=== PATIENT | male | born 1965 | race Hispanic/Latino ===

== ENCOUNTER 2019-03-02 05:54 | Emergency (ER) | payer MEDICARE ==
[~2019-03-02 05:54] MED LIST: ASPI-555 PO; CARV25TA PO; CLOP75TA14 PO; FURO80TA3 PO; HYDR-4068 PO; HYDR-4153 PO; RANO10004 PO; VIT1TABL95 PO
[2019-03-02] MEDS ORDERED: LIDOCAINE 1%-EPI 1:100,000 20 ML VIAL IJ ONE (08:49)
== END 2019-03-02 12:29 | disposition home or self-care (01) ==
LOC: EDH 05:54
DX: T82.838A Hemorrhage due to vascular prosthetic devices, implants and grafts, initial encounter (principal); E11.22 Type 2 diabetes mellitus with diabetic chronic kidney disease; N18.6 End stage renal disease; I50.9 Heart failure, unspecified; Z88.0 Allergy status to penicillin; Z88.6 Allergy status to analgesic agent; Z99.2 Dependence on renal dialysis
CPT/HCPCS: 82948; 99284; J3490

== ENCOUNTER 2019-08-14 21:09 | Emergency (ER) | payer MEDICARE ==
[~2019-08-14 21:09] MED LIST changes: -ASPI-555 PO; +ASPI-556 PO; -RANO10004 PO; +RANO10005 PO
[2019-08-14 21:38] LABS: BASOPHILS % (AUTO) 0.5 % (0.0-5.0); EOSINOPHILS % (AUTO) 1.9 % (0.0-8.0); HEMATOCRIT 35.5 % (42-54); LYMPHOCYTES % (AUTO) 17.5 % (21.0-51.0); MEAN CORPUSCULAR HEMOGLOBIN 32.1 pg (27.0-33.0); MEAN CORPUSCULAR HGB CONC 33.2 g/dL (32.0-36.0); MEAN CORPUSCULAR VOLUME 96.5 fL (79-99); MONOCYTES % (AUTO) 9.2 % (3.0-13.0); NEUTROPHILS % (AUTO) 70.3 % (40.0-77.0); PLATELET COUNT (AUTO) 219 K/uL (130-400); RED BLOOD CELL COUNT(AUTO) 3.68 MIL/uL (4.50-6.20); RED CELL DISTRIBUTION WIDTH 13.1 % (11.0-15.5); WHITE BLOOD COUNT (AUTO) 8.6 K/uL (4.8-10.8)
[2019-08-14 21:50] LABS: CREATININE 3.5 mg/dL (0.5-1.5); POTASSIUM 3.2 mmol/L (3.5-5.1)
[2019-08-14 21:52] LABS: INR 0.97 (0.85-1.15); PARTIAL THROMBOPLASTIN TIME 30.6 SEC (26.3-35.5); PROTHROMBIN TIME 10.5 SEC (9.6-11.6)
[2019-08-14 21:55] LABS: ALBUMIN 3.6 g/dL (3.5-5.0); BILIRUBIN,TOTAL 0.4 mg/dL (0.2-1.0); TOTAL PROTEIN, SERUM 7.4 g/dL (6.0-8.3)
[2019-08-14] MEDS ORDERED: LABETALOL 20 MG/4 ML DISP.SYRIN IV ONE (22:16)
[2019-08-14] MEDS ORDERED: HYDRALAZINE HCL 20 MG/ML VIAL ONE (23:44)
[2019-08-15] MEDS ORDERED: LORAZEPAM 2 MG/ML 1 ML VIAL ONE (00:05)
[2019-08-19] MEDS ORDERED: HYDR-4154 PO (16:57)
[2019-08-19] MEDS ORDERED: INSU3INS5 SQ (16:57)
[2019-08-19] MEDS ORDERED: INSU10VI3 SQ (16:57)
[2019-08-19] MEDS ORDERED: ATOR40TA69 PO (16:57)
[2019-11-11] MEDS ORDERED: SACU1TAB7 PO (16:20)
[2019-11-11] MEDS ORDERED: EZET10TA48 PO (16:20)
[2019-11-11] MEDS ORDERED: RANO10003 PO (16:20)
[2019-11-11] MEDS ORDERED: ATOR-2 PO (16:20)
[2019-11-11] MEDS ORDERED: AEC81 PO (16:20)
== END 2019-08-15 01:44 | disposition home or self-care (01) ==
LOC: EDH 21:09
DX: F41.1 Generalized anxiety disorder (principal); I13.2 Hypertensive heart and chronic kidney disease with heart failure and with stage 5 chronic kidney disease, or end stage renal disease; E11.22 Type 2 diabetes mellitus with diabetic chronic kidney disease; N18.6 End stage renal disease; I50.9 Heart failure, unspecified; Z88.0 Allergy status to penicillin; Z88.6 Allergy status to analgesic agent; Z88.8 Allergy status to other drugs, medicaments and biological substances
CPT/HCPCS: 36415; 71045; 80053; 83880; 84484 ×2; 85025; 85610; 85730; 93005; 96374; 96375 ×2; 99285; J0360; J2060; 96365; 96366

== ENCOUNTER 2019-08-20 18:07 | Inpatient (IN) | payer MEDICARE ==
[~2019-08-20] VITALS: Ht 162.6 cm; Wt 74.6 kg
[~2019-08-20 18:07] MED LIST changes: -ASPI-556 PO; +ATOR40TA69 PO; -FURO80TA3 PO; -HYDR-4153 PO; +HYDR-4154 PO; +INSU10VI3 SQ; +INSU3INS5 SQ
[2019-08-20] MEDS ORDERED: ASPIRIN 81MG TAB.CHEW ONE (18:18)
[2019-08-20 18:36] LABS: BASOPHILS % (AUTO) 0.3 % (0.0-5.0); EOSINOPHILS % (AUTO) 1.3 % (0.0-8.0); HEMATOCRIT 34.8 % (42-54); LYMPHOCYTES % (AUTO) 11.9 % (21.0-51.0); MEAN CORPUSCULAR HEMOGLOBIN 32.8 pg (27.0-33.0); MEAN CORPUSCULAR HGB CONC 33.3 g/dL (32.0-36.0); MEAN CORPUSCULAR VOLUME 98.3 fL (79-99); MONOCYTES % (AUTO) 8.3 % (3.0-13.0); NEUTROPHILS % (AUTO) 77.7 % (40.0-77.0); PLATELET COUNT (AUTO) 204 K/uL (130-400); RED BLOOD CELL COUNT(AUTO) 3.54 MIL/uL (4.50-6.20); RED CELL DISTRIBUTION WIDTH 13.1 % (11.0-15.5); WHITE BLOOD COUNT (AUTO) 9.7 K/uL (4.8-10.8)
[2019-08-20 19:06] LABS: INR 0.96 (0.85-1.15); PARTIAL THROMBOPLASTIN TIME 29.4 SEC (26.3-35.5); PROTHROMBIN TIME 10.4 SEC (9.6-11.6)
[2019-08-20 19:22] LABS: ALBUMIN 3.4 g/dL (3.5-5.0); BILIRUBIN,TOTAL 0.3 mg/dL (0.2-1.0); CREATININE 5.9 mg/dL (0.5-1.5); POTASSIUM 4.1 mmol/L (3.5-5.1)
[2019-08-20] MEDS ORDERED: INSULIN HUMULIN R 100 UNIT/ML 3ML ONE (19:48)
[2019-08-20] MEDS ORDERED: HYDROCODONE/ACETAMINOPHEN 10/325 MG TAB ONE (20:01)
[2019-08-20] MEDS ORDERED: ONDANSETRON HCL 4 MG/2 ML VIAL IVP PRN (22:00)
[2019-08-20] MEDS ORDERED: ACETAMINOPHEN 325 MG TAB PO PRN (22:00)
[2019-08-21] MEDS ORDERED: MORPHINE SULFATE 2 MG/ML 1ML SYG ONE ×3 (00:25→17:36)
[2019-08-21 04:01] LABS: BASOPHILS % (AUTO) 0.4 % (0.0-5.0); EOSINOPHILS % (AUTO) 2.6 % (0.0-8.0); HEMATOCRIT 32.1 % (42-54); LYMPHOCYTES % (AUTO) 15.5 % (21.0-51.0); MEAN CORPUSCULAR HEMOGLOBIN 31.8 pg (27.0-33.0); MEAN CORPUSCULAR HGB CONC 32.7 g/dL (32.0-36.0); MEAN CORPUSCULAR VOLUME 97.3 fL (79-99); MONOCYTES % (AUTO) 8.5 % (3.0-13.0); NEUTROPHILS % (AUTO) 72.6 % (40.0-77.0); PLATELET COUNT (AUTO) 192 K/uL (130-400); RED CELL DISTRIBUTION WIDTH 13.3 % (11.0-15.5); WHITE BLOOD COUNT (AUTO) 10.6 K/uL (4.8-10.8)
[2019-08-21 04:24] LABS: HEMOGLOBIN A1C 6.5 % (4.0-6.0)
[2019-08-21 04:38] LABS: ALBUMIN 3.1 g/dL (3.5-5.0); BILIRUBIN,TOTAL 0.3 mg/dL (0.2-1.0); CREATININE 6.1 mg/dL (0.5-1.5); MAGNESIUM 3.5 mg/dL (1.80-2.40); POTASSIUM 4.1 mmol/L (3.5-5.1); TOTAL PROTEIN, SERUM 6.4 g/dL (6.0-8.3)
[2019-08-21 04:42] LABS: TROPONIN I 11.33 ng/mL (0.00-0.06)
[2019-08-21] MEDS ORDERED: ONDANSETRON HCL 4 MG/2 ML VIAL ONE (07:40)
[2019-08-21] MEDS: ASPIRIN 81MG TAB.CHEW PO SCH (09:00)
[2019-08-21] MEDS: METOPROLOL TARTRATE 25 MG TAB PO SCH ×2 (09:00→20:55)
[2019-08-21] MEDS: ENOXAPARIN SODIUM 40 MG/0.4 ML SYRINGE SQ SCH (09:00)
[2019-08-21] MEDS ORDERED: HEPARIN SODIUM 5000UNIT/ML 1ML VIAL ONE (16:29)
--- NOTE | 2019-08-21 16:30 | NUR ---
ER ARRIVAL PATIENT ARRIVED FROM ER. NO SIGNS OF DISTRESS NOTED. PATIENT IS AAOX4. DENIES HAVING CHEST PAIN AT THIS TIME.
[2019-08-21 16:35] VITALS: BP 153/86
[2019-08-21 19:53] VITALS: BP 135/80
[2019-08-21] MEDS: INSULIN HUMULIN R 100 UNIT/ML 3ML SQ SCH (21:58)
[2019-08-21 23:54] VITALS: BP 152/83
[2019-08-22 04:02] VITALS: BP 120/60
[2019-08-22] MEDS: MORPHINE SULFATE 2 MG/ML 1ML SYG IVP PRN ×2 (04:05→20:20)
[2019-08-22] MEDS: INSULIN HUMULIN R 100 UNIT/ML 3ML SQ SCH ×4 (05:42→20:30)
[2019-08-22 07:00] VITALS: BP 142/73
[2019-08-22] MEDS: ASPIRIN 81MG TAB.CHEW PO SCH (08:38)
[2019-08-22] MEDS: METOPROLOL TARTRATE 25 MG TAB PO SCH ×2 (08:38→20:19)
[2019-08-22] MEDS: ENOXAPARIN SODIUM 40 MG/0.4 ML SYRINGE SQ SCH (08:39)
[2019-08-22] MEDS: HYDROCODONE/ACETAMINOPHEN 10/325 MG TAB PO PRN ×3 (08:52→22:20)
--- NOTE | 2019-08-22 11:14 | NUR ---
D/C PLAN CM spoke to pt regarding d/c planning. Pt lives with spouse. States spouse and provider assists in care as needed. Pt has abelardo, louisa torres, and w/c. Plan to home. Pt asked for assistance with making bathroom handicap equipped. CM offered to refer pt to DAD's program. Agreed. CM to leave referral for Nathalia with DAD's. No other questions or concerns verbalized. CM to f/u. Addendum: 08/22/19 at 1207 by AMANDA MANUEL CM Amended: Links added.
[2019-08-22 11:30] VITALS: BP 136/74
[2019-08-22 15:30] VITALS: BP 178/87
[2019-08-22] MEDS: LACTULOSE 20 GM/30 ML UDCUP PO PRN (15:36)
[2019-08-22 19:30] VITALS: BP 144/89
--- NOTE | 2019-08-22 22:00 | NUR ---
SHOWER Pt showered and clipped per staff.Instructed to keep Npo after midnight for heart cath in am,verbalized understanding.
[2019-08-23] VITALS (21 sets, daily range): BP systolic 108–159; BP diastolic 59–87
[2019-08-23 05:24] LABS: HEMATOCRIT 29.1 % (42-54); MEAN CORPUSCULAR HEMOGLOBIN 32.5 pg (27.0-33.0); MEAN CORPUSCULAR HGB CONC 33.7 g/dL (32.0-36.0); MEAN CORPUSCULAR VOLUME 96.4 fL (79-99); RED BLOOD CELL COUNT(AUTO) 3.02 MIL/uL (4.50-6.20); RED CELL DISTRIBUTION WIDTH 12.7 % (11.0-15.5); WHITE BLOOD COUNT (AUTO) 6.4 K/uL (4.8-10.8)
[2019-08-23 05:49] LABS: ALBUMIN 2.8 g/dL (3.5-5.0); BILIRUBIN,TOTAL 0.3 mg/dL (0.2-1.0); CREATININE 6.5 mg/dL (0.5-1.5); MAGNESIUM 2.5 mg/dL (1.80-2.40); POTASSIUM 3.4 mmol/L (3.5-5.1)
[2019-08-23] MEDS: INSULIN HUMULIN R 100 UNIT/ML 3ML SQ SCH ×4 (06:10→21:00)
[2019-08-23] MEDS: MORPHINE SULFATE 2 MG/ML 1ML SYG IVP PRN ×4 (06:13→23:28)
[2019-08-23] MEDS: HYDROCODONE/ACETAMINOPHEN 10/325 MG TAB PO PRN ×3 (08:13→22:38)
[2019-08-23] MEDS: METOPROLOL TARTRATE 25 MG TAB PO SCH ×2 (08:13→21:11)
[2019-08-23] MEDS: ENOXAPARIN SODIUM 40 MG/0.4 ML SYRINGE SQ SCH (09:00)
[2019-08-23] MEDS: ASPIRIN 81MG TAB.CHEW PO SCH (10:55)
[2019-08-23] MEDS ORDERED: FENTANYL CITRATE PF 50 MCG/1 ML 2ML VIAL ONE (11:30)
[2019-08-23] MEDS ORDERED: SODIUM BICARB 50MEQ 50ML VIAL ONE (11:30)
[2019-08-23] MEDS ORDERED: NITROGLYCERIN 2 MG/VIAL VIAL IV ONE (11:30)
[2019-08-23] MEDS ORDERED: MIDAZOLAM HCL 1 MG/ML 2ML VIAL ONE (11:30)
[2019-08-23] MEDS ORDERED: LIDOCAINE HCL 2% 20ML ONE (11:30)
[2019-08-23] MEDS ORDERED: IOHEXOL-350 50ML VIAL IV ONE (11:30)
[2019-08-23] MEDS ORDERED: IOHEXOL 350 MG/ML 100ML INFUS..BTL IV ONE ×2 (11:30→13:19)
--- NOTE | 2019-08-23 11:40 | NUR ---
[employer] COMMISSIONER PATIENT IN [id number] CONDITION, ON ROOM AIR, ALERT AND ORIENTED, NO COMPLAINTS OF CHEST PAIN. [employer] COMMISSIONER TEAM ARRIVED TO ROOM TO TRANSPORT PATIENT TO [employer] COMM[employer]IONER AT THIS TIME.
[2019-08-23] MEDS ORDERED: HEPARIN SODIUM 1000UNIT/ML 10ML VIAL ONE (12:28)
[2019-08-23] MEDS ORDERED: IOHEXOL-350 75 ML VIAL IV ONE (12:48)
[2019-08-23] MEDS ORDERED: NITROGLYCERIN 50 MG/D5% WATER 1 BOT ONE (13:03)
--- NOTE | 2019-08-23 14:20 | NUR ---
REPORT REPORT GIVEN TO DEENA LOPEZ. PATIENT WILL BE TRANSFERRED TO ICU. PATIENT'S MADE AWARE.
[2019-08-23] MEDS ORDERED: NITROGLYCERIN 50 MG/D5% WATER 250 BOT IV SCH (15:00)
[2019-08-24] VITALS (22 sets, daily range): BP systolic 126–157; BP diastolic 65–84
[2019-08-24] MEDS: HYDROCODONE/ACETAMINOPHEN 10/325 MG TAB PO PRN ×3 (05:00→18:47)
[2019-08-24] MEDS: INSULIN HUMULIN R 100 UNIT/ML 3ML SQ SCH ×4 (07:30→20:44)
[2019-08-24] MEDS: ASPIRIN 81MG TAB.CHEW PO SCH (08:12)
[2019-08-24] MEDS: METOPROLOL TARTRATE 25 MG TAB PO SCH (08:12)
[2019-08-24] MEDS: ENOXAPARIN SODIUM 40 MG/0.4 ML SYRINGE SQ SCH (08:29)
[2019-08-24] MEDS ORDERED: NITR0.4T50 SL (16:59)
[2019-08-24] MEDS ORDERED: HEPARIN SODIUM 5000UNIT/ML 1ML VIAL ONE (18:22)
--- NOTE | 2019-08-24 22:23 | NUR ---
TRANSFER Received pt from [facility] via wheelchair,accompanied per Stewart Roberson.Pt aao x 3,denies pain or discomfort.Rt groin soft,no hematoma,dressing dry and intact,pedal pulses palpable.Rt.permacath drsng dry and intact.Reoriented to room,bed,call light.
--- NOTE | 2019-08-24 23:43 | NUR ---
ASLEEP Pt appears to be asleep,respirations even and unlabored.
[2019-08-25 03:54] VITALS: BP 142/73
--- NOTE | 2019-08-25 05:31 | NUR ---
SLEPT Pt slept well.no signs of distress or pain noted.
[2019-08-25] MEDS: INSULIN HUMULIN R 100 UNIT/ML 3ML SQ SCH ×4 (06:08→21:24)
[2019-08-25 08:59] VITALS: BP 149/81
[2019-08-25] MEDS: ASPIRIN 81MG TAB.CHEW PO SCH (09:11)
[2019-08-25] MEDS: ENOXAPARIN SODIUM 40 MG/0.4 ML SYRINGE SQ SCH (09:12)
[2019-08-25] MEDS: LACTULOSE 20 GM/30 ML UDCUP PO PRN (09:12)
[2019-08-25] MEDS: HYDROCODONE/ACETAMINOPHEN 10/325 MG TAB PO PRN ×3 (09:16→18:34)
[2019-08-25 12:46] VITALS: BP 153/79
--- NOTE | 2019-08-25 13:00 | NUR ---
PT WAS INITIALLY D/C BY DR WIGGINS BUT THEN PT TOLD HIM THAT HE WAS OUT OF [employer] SCRIPT FOR AT HOME AND HIS DR MCF[address]ANE OFFICE IS CLOSED FOR A WEEK; DR Ordaz SAID HE DID NOT HAVE TRIPLICATE WITH HIM AND HE WOULD BRING IT TOMORROW AND D/C PT THEN TOMORROW INSTEAD OF TODAY.
[2019-08-25 16:00] VITALS: BP 147/79
[2019-08-25 20:50] VITALS: BP 149/78
[2019-08-26 00:36] VITALS: BP 146/77
[2019-08-26] MEDS: HYDROCODONE/ACETAMINOPHEN 10/325 MG TAB PO PRN ×2 (02:15→11:05)
[2019-08-26 04:00] VITALS: BP 159/87
[2019-08-26] MEDS: INSULIN HUMULIN R 100 UNIT/ML 3ML SQ SCH ×2 (06:09→11:30)
[2019-08-26] MEDS ORDERED: ACETAMINOPHEN 325 MG TAB PO PRN (07:45)
[2019-08-26] MEDS ORDERED: 0.9% SODIUM CHLORIDE 1000 ML IV BAG IV PRN (07:45)
[2019-08-26] MEDS ORDERED: SODIUM CHLORIDE 0.9% 1000ML 1,000 ML IV PRN (07:45)
[2019-08-26] MEDS ORDERED: HEPARIN SODIUM 5000UNIT/ML 1ML VIAL IJ PRN ×2 (07:45)
[2019-08-26] MEDS ORDERED: NITROGLYCERIN 0.4 MG SL TAB SL PRN (07:45)
[2019-08-26 08:30] VITALS: BP 163/84
[2019-08-26] MEDS: ENOXAPARIN SODIUM 40 MG/0.4 ML SYRINGE SQ SCH (09:00)
[2019-08-26] MEDS: ASPIRIN 81MG TAB.CHEW PO SCH (11:04)
--- NOTE | 2019-08-26 11:35 | NUR ---
DIALYSIS PATIENT RECEIVED DIALYSIS TODAY FORM 0755 TO 1055 HOURS. REMOVED WAS 2.7L OF FLUID, PATIENT TOLERATED PROCEDURE WITHOUT INCIDENT. VITAL SIGNS WITHIN NORMAL LIMITS.
[2019-08-26 12:04] VITALS: BP 122/72
--- NOTE | 2019-08-26 14:14 | NUR ---
PATIENT DISCHARGE PATIENT DISCHARGED, IV DISCONTINUED, CATHLON INTACT, BLEEDING CONTROLLED, PATIENT TOLERATED WITHOUT INCIDENT.
== END 2019-08-26 14:08 | disposition home or self-care (01) | DRG 280 ==
LOC: EDH 18:07 → EDHIP 21:23 → 4BH 08-21 16:57 → OBSVTOIN 08-21 19:57 → 2CH 08-23 14:25 → 4DH 08-24 21:57
PROVIDERS: ADMIT Internal Medicine Infectious Disease; ATTEND Internal Medicine Infectious Disease
PROC: 5A1D70Z Performance of Urinary Filtration, Intermittent, Less than 6 Hours Per Day (ICD-10-PCS; 2019-08-21)
PROC: 4A023N8 Measurement of Cardiac Sampling and Pressure, Bilateral, Percutaneous Approach (ICD-10-PCS; principal; 2019-08-23)
PROC: B2121ZZ Fluoroscopy of Single Coronary Artery Bypass Graft using Low Osmolar Contrast (ICD-10-PCS; 2019-08-23)
PROC: B2181ZZ Fluoroscopy of Left Internal Mammary Bypass Graft using Low Osmolar Contrast (ICD-10-PCS; 2019-08-23)
PROC: B2111ZZ Fluoroscopy of Multiple Coronary Arteries using Low Osmolar Contrast (ICD-10-PCS; 2019-08-23)
PROC: 5A1D70Z Performance of Urinary Filtration, Intermittent, Less than 6 Hours Per Day (ICD-10-PCS; 2019-08-24)
PROC: 5A1D70Z Performance of Urinary Filtration, Intermittent, Less than 6 Hours Per Day (ICD-10-PCS; 2019-08-26)
DX: T82.218A Other mechanical complication of coronary artery bypass graft, initial encounter (principal); I21.4 Non-ST elevation (NSTEMI) myocardial infarction; N18.6 End stage renal disease; E44.1 Mild protein-calorie malnutrition; I13.2 Hypertensive heart and chronic kidney disease with heart failure and with stage 5 chronic kidney disease, or end stage renal disease; I50.42 Chronic combined systolic (congestive) and diastolic (congestive) heart failure; E66.9 Obesity, unspecified; E11.22 Type 2 diabetes mellitus with diabetic chronic kidney disease; Z95.1 Presence of aortocoronary bypass graft; I25.10 Atherosclerotic heart disease of native coronary artery without angina pectoris; Z99.2 Dependence on renal dialysis; I25.5 Ischemic cardiomyopathy; I35.0 Nonrheumatic aortic (valve) stenosis; Z68.28 Body mass index [BMI] 28.0-28.9, adult; D63.1 Anemia in chronic kidney disease; E78.5 Hyperlipidemia, unspecified; G89.29 Other chronic pain; I25.2 Old myocardial infarction; I27.20 Pulmonary hypertension, unspecified; Z79.02 Long term (current) use of antithrombotics/antiplatelets; Z79.899 Other long term (current) drug therapy; Z82.49 Family history of ischemic heart disease and other diseases of the circulatory system; Z83.3 Family history of diabetes mellitus; Z88.0 Allergy status to penicillin; Z88.8 Allergy status to other drugs, medicaments and biological substances; Y83.2 Surgical operation with anastomosis, bypass or graft as the cause of abnormal reaction of the patient, or of later complication, without mention of misadventure at the time of the procedure; Y92.89 Other specified places as the place of occurrence of the external cause
CPT/HCPCS: 36415; 71045; 76942; 80048; 80053; 80061; 82550; 82948; 83036; 83735; 83874; 83880; 84484; 85025; 85027; 85347; 85610; 85730; 90935; 93005; 93306; 93356; 93461; 99156; 99157; 99291; C1760; C1769; C1894; G0378; J1644; J1650; J1815; J2250; J2405; J3010; J3490; Q9967; U0003

== ENCOUNTER 2019-11-12 06:08 | Inpatient (IN) | payer MEDICARE ==
[2019-11-05 11:34] LABS: BASOPHILS % (AUTO) 0.6 % (0.0-5.0); EOSINOPHILS % (AUTO) 18.5 % (0.0-8.0); HEMATOCRIT 36.6 % (42-54); LYMPHOCYTES % (AUTO) 19.8 % (21.0-51.0); MEAN CORPUSCULAR HEMOGLOBIN 31.8 pg (27.0-33.0); MEAN CORPUSCULAR HGB CONC 32.2 g/dL (32.0-36.0); MEAN CORPUSCULAR VOLUME 98.7 fL (79-99); MONOCYTES % (AUTO) 5.9 % (3.0-13.0); NEUTROPHILS % (AUTO) 54.9 % (40.0-77.0); PLATELET COUNT (AUTO) 122 K/uL (130-400); RED BLOOD CELL COUNT(AUTO) 3.71 MIL/uL (4.50-6.20); RED CELL DISTRIBUTION WIDTH 13.3 % (11.0-15.5); WHITE BLOOD COUNT (AUTO) 9.3 K/uL (4.8-10.8)
[2019-11-05 11:46] LABS: CREATININE 7.1 mg/dL (0.5-1.5); POTASSIUM 4.2 mmol/L (3.5-5.1)
[2019-11-05 11:47] LABS: INR 0.99 (0.85-1.15); PARTIAL THROMBOPLASTIN TIME 29.6 SEC (26.3-35.5); PROTHROMBIN TIME 10.7 SEC (9.6-11.6)
--- NOTE | 2019-11-11 14:54 | NUR ---
LABS INFORMED DR. BARRETT GARCIA'S ASST IN REGARDS TO PLATELETS. SHE WILL INFORM HIM.
[2019-11-11 15:42] VITALS: BP 163/79
[2019-11-12] VITALS (24 sets, daily range): BP systolic 109–149; BP diastolic 62–82
[~2019-11-12] VITALS: Ht 162.6 cm; Wt 74.4 kg
[~2019-11-12 06:08] MED LIST changes: +AEC81 PO; +ATOR-2 PO; -ATOR40TA69 PO; +EZET10TA48 PO; -HYDR-4154 PO; -INSU10VI3 SQ; +PHARMACY COMMUNICATION MISC SCH; +RANO10003 PO; -RANO10005 PO; +SACU1TAB7 PO
[2019-11-12] MEDS ORDERED: LIDOCAINE PF 2% 5ML ABBOJECT ONE (07:25)
[2019-11-12] MEDS ORDERED: SUCCINYLCHOLINE CHLORIDE 20 MG/ML 10 ML VIAL ONE (07:25)
[2019-11-12] MEDS ORDERED: ONDANSETRON HCL 4 MG/2 ML VIAL ONE ×2 (07:26→22:56)
[2019-11-12] MEDS ORDERED: ROCURONIUM 10MG/1ML SYR 10 MG/ML ML ONE (07:26)
[2019-11-12] MEDS ORDERED: DEXAMETHASONE SOD PHOSPHATE 10MG/ML 1ML VIAL ONE (07:26)
[2019-11-12] MEDS ORDERED: MIDAZOLAM HCL 1 MG/ML 2ML VIAL ONE (07:26)
[2019-11-12] MEDS ORDERED: NEOSTIGMINE 5MG/5ML SYR IV ONE (07:26)
[2019-11-12] MEDS ORDERED: SODIUM CHLORIDE 0.9% 1000ML 1,000 ML IV ONE (07:26)
[2019-11-12] MEDS ORDERED: GLYCOPYRROLATE 1 MG/5 ML SYRINGE ONE (07:26)
[2019-11-12] MEDS ORDERED: PROPOFOL 10 MG/ML 20ML VIAL IV ONE (07:26)
[2019-11-12] MEDS ORDERED: FENTANYL CITRATE PF 50 MCG/1 ML 2ML VIAL ONE (07:27)
[2019-11-12] MEDS ORDERED: ALBUMIN (HUMAN) 25% 100 ML IV ONE (07:35)
[2019-11-12] MEDS: CLINDAMYCIN 900 MG/D5% WATER 50 ML IV PRN ×2 (07:35→07:45)
[2019-11-12] MEDS ORDERED: EPHEDRINE SULFATE 50 MG/ML AMPULE ONE (07:57)
[2019-11-12] MEDS ORDERED: ALBUMIN (HUMAN) 5% 500 ML IV ONE (08:07)
[2019-11-12] MEDS ORDERED: MEPERIDINE-PF 25 MG/ML SYG ONE (10:46)
[2019-11-12] MEDS ORDERED: SODIUM CHLORIDE 0.9% 1000ML 1,000 ML IV SCH (16:15)
[2019-11-12] MEDS ORDERED: MORPHINE SULFATE 4 MG/1ML SYG IV ONE (16:45)
[2019-11-12] MEDS: MORPHINE SULFATE 2 MG/ML 1ML SYG IVP PRN (20:06)
[2019-11-12] MEDS: OXYCODONE/ACETAMIN 5/325MG TAB PO PRN (21:32)
[2019-11-13 00:16] VITALS: BP 118/69
[2019-11-13] MEDS: MORPHINE SULFATE 2 MG/ML 1ML SYG IVP PRN ×6 (00:18→23:19)
[2019-11-13 04:02] VITALS: BP 126/76
[2019-11-13 06:09] LABS: BASOPHILS % (AUTO) 0.5 % (0.0-5.0); EOSINOPHILS % (AUTO) 4.2 % (0.0-8.0); LYMPHOCYTES % (AUTO) 12.5 % (21.0-51.0); MEAN CORPUSCULAR HEMOGLOBIN 32.8 pg (27.0-33.0); MEAN CORPUSCULAR VOLUME 99.3 fL (79-99); MONOCYTES % (AUTO) 6.8 % (3.0-13.0); NEUTROPHILS % (AUTO) 75.6 % (40.0-77.0); PLATELET COUNT (AUTO) 146 K/uL (130-400); RED BLOOD CELL COUNT(AUTO) 3.02 MIL/uL (4.50-6.20); RED CELL DISTRIBUTION WIDTH 13.2 % (11.0-15.5)
[2019-11-13 06:21] LABS: CREATININE 7.4 mg/dL (0.5-1.5); POTASSIUM 3.9 mmol/L (3.5-5.1)
[2019-11-13] MEDS: OXYCODONE/ACETAMIN 5/325MG TAB PO PRN (06:26)
[2019-11-13 08:00] VITALS: BP 146/78
[2019-11-13 12:00] VITALS: BP 133/76
[2019-11-13] MEDS ORDERED: ALBUTEROL INHALER 90MCG/INH IH PRN (12:00)
--- NOTE | 2019-11-13 13:02 | NUR ---
INITIAL SW spoke with patient. He lives with spouse, Beronica Santamaria. Patient has no home health but does have PHC X 29 hours. He does not remember the name of the agency. Dialysis: TTS 5am at [facility] in [place]. His helps with transportation to and from treatments. DME: BPM, electric wheelchair. Patient needs help with ADLs and rarely drives. PCP is Dr. Patel. Pharmacy is [facility] or [facility] in [place]. No safety concerns voiced about returning home. DCP is home. Addendum: 11/13/19 at 1305 by HUNTER CUELLAR SS Amended: Links added.
[2019-11-13] MEDS: RANOLAZINE 500 MG TAB.SR.12H PO SCH ×2 (13:38→21:00)
[2019-11-13 16:00] VITALS: BP 149/78
[2019-11-13 20:15] VITALS: BP 131/78
[2019-11-13] MEDS ORDERED: ATORVASTATIN CALCIUM 40 MG TABLET PO SCH (21:00)
[2019-11-13] MEDS ORDERED: EZETIMIBE 10 MG TAB PO SCH (21:00)
[2019-11-13] MEDS: SACUBITRIL PO SCH (21:00)
[2019-11-13] MEDS: VALSARTAN PO SCH (21:00)
[2019-11-13] MEDS ORDERED: CARVEDILOL 25 MG TABLET PO SCH (21:00)
[2019-11-13] MEDS ORDERED: HEPARIN SODIUM 5000UNIT/ML 1ML VIAL ONE (21:03)
[2019-11-14 00:02] VITALS: BP 104/73
[2019-11-14] MEDS: OXYCODONE/ACETAMIN 5/325MG TAB PO PRN ×2 (02:25→12:23)
[2019-11-14 04:04] VITALS: BP 83/50
--- NOTE | 2019-11-14 04:47 | NUR ---
Hypotensive Patient BP is low 88/57 was the highest and 83/54 is the lowest. The patient is asymptomatic. Dr. Avilez was paged at [phone] this morning. No calls have been returned for the MD as of right now. The patient is being closely monitored.
--- NOTE | 2019-11-14 04:53 | NUR ---
has been paged again [phone]
[2019-11-14 05:16] VITALS: BP 91/51
[2019-11-14 06:06] VITALS: BP 92/52
[2019-11-14] MEDS ORDERED: SODIUM CHLORIDE 0.9% 500ML 500 ML IV ONE (07:00)
[2019-11-14] MEDS: VALSARTAN PO SCH (07:17)
[2019-11-14] MEDS: SACUBITRIL PO SCH (07:17)
[2019-11-14] MEDS: RANOLAZINE 500 MG TAB.SR.12H PO SCH (08:54)
[2019-11-14] MEDS ORDERED: INSULIN HUMULIN 70/30 100 UNIT/ML 3ML SQ SCH (09:00)
[2019-11-14] MEDS ORDERED: ASPIRIN 81 MG EC TAB PO SCH (09:00)
[2019-11-14] MEDS ORDERED: VITAMIN B COMPLEX 1 CAPSULE PO SCH (09:00)
[2019-11-14] MEDS ORDERED: CLOPIDOGREL BISULFATE 75 MG TAB PO SCH (09:00)
[2019-11-14 09:46] VITALS: BP 100/59
[2019-11-14 10:31] VITALS: BP 103/60
--- NOTE | 2019-11-14 14:07 | NUR ---
DR HYDE CAME TO SEE PATIENT REMOVED GENNARO DRAIN AND APPLIED DRESSING .WILL DISCHARGE PATIENT .INFORMED MD ON BP BEING LOW IN MORNING HOURS AFTER DIALYSIS AND CURRENTLY BORDERLINE 90S TO 100 SYSTOLIC. MD EXPLAINED TO PATIENT MAY CONT HIS CAR[facility] STARTING TOMORROW BUT HOLD TODAY AND TO CHANGE HIS DRESSING ON IF NEEDED AND FOLLOW UP IN OFFICE. PATIENT VERBALIZED UNDERSTANDING
--- NOTE | 2019-11-14 14:12 | NUR ---
DISCHARGE INSTRUCTION PROVIDED TO PATIENT ALONG WITH INFO ON BLOOD PRESSURE CHECKS , CHECK INCISION ,CHANGE DRESSING AND TO CALL FOR COMPLICATIONS ,AND PROVIDED SCRIPT. FOLLOW UP WITH DR HYDE AND HIS DIALYSIS . PATIENT VERBILIZED UNDERSTANDING
[2019-11-17 07:18] LABS: HEPATITIS Bs ANTIGEN SCREEN P Negative (Negative)
== END 2019-11-14 15:50 | disposition home or self-care (01) | DRG 673 ==
LOC: DAH 06:08 → DAHIP 06:09 → 4AH 13:46
PROVIDERS: ADMIT Surgery Vascular Surgery; ATTEND Surgery Vascular Surgery
PROC: 5A1D70Z Performance of Urinary Filtration, Intermittent, Less than 6 Hours Per Day (ICD-10-PCS; 2019-11-12)
PROC: 03180ZD Bypass Left Brachial Artery to Upper Arm Vein, Open Approach (ICD-10-PCS; principal; 2019-11-12 07:30)
DX: I12.0 Hypertensive chronic kidney disease with stage 5 chronic kidney disease or end stage renal disease (principal); N18.6 End stage renal disease; Z20.828 Contact with and (suspected) exposure to other viral communicable diseases; D63.1 Anemia in chronic kidney disease; E11.22 Type 2 diabetes mellitus with diabetic chronic kidney disease; E78.5 Hyperlipidemia, unspecified; Y92.89 Other specified places as the place of occurrence of the external cause; Z99.2 Dependence on renal dialysis; Z95.1 Presence of aortocoronary bypass graft; Z95.5 Presence of coronary angioplasty implant and graft; Z88.0 Allergy status to penicillin; Z88.8 Allergy status to other drugs, medicaments and biological substances
CPT/HCPCS: 36415; 71045; 80048; 82948; 85025; 85610; 85730; 86704; 86706; 86850; 86900; 86901; 87340; 87520; 90935; 93005; G0378; J0330; J1100; J1644; J1815; J2001; J2175; J2250; J2270; J2405; J2704; J2710; J3010; J3490; J7030; P9045; P9047; U0003

== ENCOUNTER 2020-01-05 19:39 | Emergency (ER) | payer MEDICARE ==
[~2020-01-05 19:39] MED LIST changes: -PHARMACY COMMUNICATION MISC SCH
== END 2020-01-05 21:25 | disposition home or self-care (01) ==
LOC: EDH 19:39
DX: T82.838A Hemorrhage due to vascular prosthetic devices, implants and grafts, initial encounter (principal); I13.2 Hypertensive heart and chronic kidney disease with heart failure and with stage 5 chronic kidney disease, or end stage renal disease; E11.22 Type 2 diabetes mellitus with diabetic chronic kidney disease; N18.6 End stage renal disease; I50.9 Heart failure, unspecified; I25.10 Atherosclerotic heart disease of native coronary artery without angina pectoris; E78.00 Pure hypercholesterolemia, unspecified; Z95.1 Presence of aortocoronary bypass graft; Z88.0 Allergy status to penicillin; Z88.6 Allergy status to analgesic agent; Z99.2 Dependence on renal dialysis; Y84.1 Kidney dialysis as the cause of abnormal reaction of the patient, or of later complication, without mention of misadventure at the time of the procedure; Y92.89 Other specified places as the place of occurrence of the external cause

== ENCOUNTER → 2020-03-06 | Outpatient (CLI) | payer MEDICARE | END | disposition home or self-care (01) | LOC: SHCH 12:42 | PROVIDERS: ATTEND Internal Medicine Cardiovascular Disease | DX: I25.5 Ischemic cardiomyopathy (principal) | CPT/HCPCS: 93306; 93356 ==

== ENCOUNTER → 2020-04-28 | Outpatient (CLI) | payer MEDICARE | END | disposition home or self-care (01) | LOC: SHCH 10:00 | PROVIDERS: ATTEND Internal Medicine Cardiovascular Disease | DX: I50.22 Chronic systolic (congestive) heart failure (principal); I25.5 Ischemic cardiomyopathy | CPT/HCPCS: 78481; A9512 ==

== ENCOUNTER 2020-06-08 08:08 | Inpatient (IN) | payer MEDICARE ==
[~2020-06-08] VITALS: Ht 160 cm; Wt 63.5 kg
[2020-06-08 08:45] LABS: BASOPHILS % (AUTO) 0.8 % (0.0-5.0); EOSINOPHILS % (AUTO) 2.6 % (0.0-8.0); HEMATOCRIT 37.4 % (42-54); MEAN CORPUSCULAR HGB CONC 32.1 g/dL (32.0-36.0); MEAN CORPUSCULAR VOLUME 96.6 fL (79-99); NEUTROPHILS % (AUTO) 59.4 % (40.0-77.0); PLATELET COUNT (AUTO) 144 K/uL (130-400); RED BLOOD CELL COUNT(AUTO) 3.87 MIL/uL (4.50-6.20); RED CELL DISTRIBUTION WIDTH 14.4 % (11.0-15.5); WHITE BLOOD COUNT (AUTO) 5.1 K/uL (4.8-10.8)
[2020-06-08 08:58] LABS: INR 1.04 (0.85-1.15); PROTHROMBIN TIME 11.3 SEC (9.6-11.6)
[2020-06-08 08:59] LABS: PARTIAL THROMBOPLASTIN TIME 31.8 SEC (26.3-35.5)
[2020-06-08 09:09] LABS: ALBUMIN 3.3 g/dL (3.5-5.0); BILIRUBIN,TOTAL 0.5 mg/dL (0.2-1.0); CREATININE 7.2 mg/dL (0.5-1.5); POTASSIUM 4.6 mmol/L (3.5-5.1); TOTAL PROTEIN, SERUM 6.8 g/dL (6.0-8.3)
[2020-06-08] MEDS ORDERED: DEXTROSE 50%-WATER 50 ML DISP.SYRIN IV PRN (13:00)
[2020-06-08] MEDS ORDERED: GLUCAGON 1MG KIT 1 MG ML IM PRN (13:00)
[2020-06-08] MEDS ORDERED: ONDANSETRON 4MG INJ IVP PRN (13:00)
[2020-06-08] MEDS ORDERED: ACETAMINOPHEN 325 MG TAB PO PRN (13:00)
[2020-06-08] MEDS: INSULIN R PO SS1/2 SQ SCH ×2 (16:30→21:00)
[2020-06-08 17:46] LABS: APPEARANCE,URINE Clear (CLEAR); BILIRUBIN,URINE Negative (NEGATIVE); COLOR,URINE Yellow (YELLOW); GLUCOSE, URINE (UA) TRACE mg/dL (NEGATIVE); KETONES,URINE Negative (NEGATIVE); LEUKOCYTE ESTERASE ,URINE Trace (NEGATIVE); NITRATE,URINE Negative (NEGATIVE); OCCULT BLOOD,URINE Negative (NEGATIVE); PH,URINE >=9.0 (5.0-8.0); PROTEIN,URINE 300 mg/dL (NEGATIVE)
[2020-06-08 17:54] LABS: AMPHET/METH SCREEN,URINE NEGATIVE (NEGATIVE); BARBITURATE SCREEN, URINE NEGATIVE (NEGATIVE); BENZODIAZEPINES SCREEN,URINE POSITIVE (NEGATIVE); CANNABINOID SCREEN,URINE NEGATIVE (NEGATIVE); COCAINE SCREEN,URINE NEGATIVE (NEGATIVE); OPIATE SCREEN,URINE POSITIVE (NEGATIVE); PHENCYCLIDINE SCREEN,URINE NEGATIVE (NEGATIVE)
[2020-06-08 18:28] LABS: BACTERIA,URINE Few /HPF (None Seen); SQUAMOUS EPITHELIAL CELL,UR Rare /HPF (0-2)
[2020-06-08 18:29] LABS: SPERM,URINE Few /HPF (None Seen)
[2020-06-08] MEDS: FAMOTIDINE 20MG VIAL IV SCH (21:00)
[2020-06-08] MEDS ORDERED: PANTOPRAZOLE 40 MG/VIAL ONE (21:14)
[2020-06-08] MEDS ORDERED: CARVEDILOL 25 MG TABLET PO ONE (21:32)
[2020-06-08] MEDS ORDERED: RANOLAZINE 500 MG TAB.SR.12H ONE (21:32)
[2020-06-08] MEDS ORDERED: HYDROCODONE/ACETAMINOPHEN 10/325 MG TAB ONE (21:33)
[2020-06-08 23:50] VITALS: BP 131/72
[2020-06-09 01:37] LABS: CREATINE KINASE, TOTAL 69 U/L (21-232); MYOGLOBIN 251 ng/mL (10-92); TROPONIN I < 0.04 ng/mL (0.00-0.06)
[2020-06-09] MEDS: HYDROCODONE/ACETAMINOPHEN 10/325 MG TAB PO PRN ×3 (03:28→18:23)
[2020-06-09 04:01] VITALS: BP 115/64
[2020-06-09 05:21] LABS: EOSINOPHILS % (AUTO) 1.9 % (0.0-8.0); HEMATOCRIT 32.1 % (42-54); LYMPHOCYTES % (AUTO) 35.1 % (21.0-51.0); MEAN CORPUSCULAR HEMOGLOBIN 31.5 pg (27.0-33.0); MEAN CORPUSCULAR VOLUME 95.3 fL (79-99); MONOCYTES % (AUTO) 11.2 % (3.0-13.0); NEUTROPHILS % (AUTO) 50.6 % (40.0-77.0); PLATELET COUNT (AUTO) 110 K/uL (130-400); RED BLOOD CELL COUNT(AUTO) 3.37 MIL/uL (4.50-6.20); RED CELL DISTRIBUTION WIDTH 14.1 % (11.0-15.5); WHITE BLOOD COUNT (AUTO) 4.2 K/uL (4.8-10.8)
[2020-06-09 05:24] LABS: HEMOGLOBIN A1C 5.6 % (4.0-6.0)
[2020-06-09 05:49] LABS: ALBUMIN 2.8 g/dL (3.5-5.0); BILIRUBIN,TOTAL 0.5 mg/dL (0.2-1.0); CREATININE 7.2 mg/dL (0.5-1.5); POTASSIUM 4.2 mmol/L (3.5-5.1); THYROID STIMULATING HORMONE 1.08 uIU/mL (0.36-3.74); TOTAL PROTEIN, SERUM 5.8 g/dL (6.0-8.3)
[2020-06-09] MEDS: INSULIN R PO SS1/2 SQ SCH ×4 (07:15→21:00)
[2020-06-09] MEDS ORDERED: INSULIN HUMULIN 70/30 100 UNIT/ML 3ML SQ SCH (07:30)
[2020-06-09] MEDS: CLOPIDOGREL 75MG TAB PO SCH (08:42)
[2020-06-09 08:43] VITALS: BP 133/69
[2020-06-09] MEDS: RANOLAZINE 500 MG TAB.SR.12H PO SCH ×2 (08:43→21:32)
[2020-06-09] MEDS: ASPIRIN 81 MG EC TAB PO SCH (08:44)
[2020-06-09] MEDS: CARVEDILOL 25 MG TABLET PO SCH ×2 (08:44→21:32)
[2020-06-09] MEDS: FOLIC ACID PO SCH (08:54)
[2020-06-09] MEDS: RIBOFLAVIN PO SCH (08:54)
[2020-06-09] MEDS: VALSARTAN PO SCH ×2 (08:54→21:41)
[2020-06-09] MEDS: CYANOCOBALAMIN PO SCH (08:54)
[2020-06-09] MEDS: PYRIDOXINE PO SCH (08:54)
[2020-06-09] MEDS: SACUBITRIL PO SCH ×2 (08:54→21:41)
[2020-06-09] MEDS: CHOLECALCIFEROL PO SCH (08:54)
[2020-06-09] MEDS ORDERED: VANCOMYCIN 1G/250ML KIT 250 ML IV PRN (11:45)
[2020-06-09 11:46] LABS: CREATINE KINASE, TOTAL 54 U/L (21-232); MYOGLOBIN 242 ng/mL (10-92); TROPONIN I < 0.04 ng/mL (0.00-0.06)
[2020-06-09 13:54] VITALS: BP 106/59
[2020-06-09 19:10] VITALS: BP 133/65
[2020-06-09 19:13] VITALS: BP 136/75
[2020-06-09] MEDS: EZETIMIBE 10 MG TAB PO SCH (21:31)
[2020-06-09] MEDS: FAMOTIDINE 20MG VIAL IV SCH (21:31)
[2020-06-09] MEDS: ATORVASTATIN 40 MG TABLET PO SCH (21:33)
[2020-06-10] VITALS (7 sets, daily range): BP systolic 98–143; BP diastolic 51–75
[2020-06-10 05:50] LABS: HEMATOCRIT 31.5 % (42-54); MEAN CORPUSCULAR HEMOGLOBIN 31.7 pg (27.0-33.0); PLATELET COUNT (AUTO) 114 K/uL (130-400); RED BLOOD CELL COUNT(AUTO) 3.28 MIL/uL (4.50-6.20); RED CELL DISTRIBUTION WIDTH 14.1 % (11.0-15.5)
[2020-06-10 05:59] LABS: PHOSPHORUS 4.2 mg/dL (2.5-4.9); POTASSIUM 4.4 mmol/L (3.5-5.1)
[2020-06-10 06:00] LABS: CREATININE 8.7 mg/dL (0.5-1.5)
[2020-06-10 06:26] LABS: LYMPHOCYTES % (MANUAL) 36 % (22-44); MAN.DIFF COMMENT-IMPRESSION MANUAL DIFFERENTIAL; MONOCYTES % (MANUAL) 9 % (2-9); PLATELET MORPHOLOGY COMMENT SLIGHTLY DECREASED; REACTIVE LYMPHOCYTES 4 % (0-0); SEGMENTED NEUTROPHILS % 51 % (40-70)
[2020-06-10] MEDS: INSULIN R PO SS1/2 SQ SCH ×4 (06:43→20:05)
[2020-06-10] MEDS ORDERED: LORA2TAB80 PO (07:09)
[2020-06-10] MEDS: HYDROCODONE/ACETAMINOPHEN 10/325 MG TAB PO PRN ×2 (08:45→16:59)
[2020-06-10] MEDS: CARVEDILOL 25 MG TABLET PO SCH ×2 (09:00→21:00)
[2020-06-10] MEDS: FOLIC ACID PO SCH (09:00)
[2020-06-10] MEDS: SACUBITRIL PO SCH ×2 (09:00→21:02)
[2020-06-10] MEDS: CYANOCOBALAMIN PO SCH (09:00)
[2020-06-10] MEDS: CHOLECALCIFEROL PO SCH (09:00)
[2020-06-10] MEDS: VALSARTAN PO SCH ×2 (09:00→21:02)
[2020-06-10] MEDS: RIBOFLAVIN PO SCH (09:00)
[2020-06-10] MEDS: PYRIDOXINE PO SCH (09:00)
[2020-06-10] MEDS: ASPIRIN 81 MG EC TAB PO SCH (14:36)
[2020-06-10] MEDS: CLOPIDOGREL 75MG TAB PO SCH (14:36)
[2020-06-10] MEDS: RANOLAZINE 500 MG TAB.SR.12H PO SCH ×2 (14:36→21:02)
[2020-06-10] MEDS: FAMOTIDINE 20MG VIAL IV SCH (21:02)
[2020-06-10] MEDS: EZETIMIBE 10 MG TAB PO SCH (21:02)
[2020-06-10] MEDS: ATORVASTATIN 40 MG TABLET PO SCH (21:02)
[2020-06-11] MEDS: HYDROCODONE/ACETAMINOPHEN 10/325 MG TAB PO PRN ×4 (00:37→23:41)
[2020-06-11 03:55] VITALS: BP 146/74
[2020-06-11] MEDS: INSULIN R PO SS1/2 SQ SCH ×4 (06:12→20:23)
[2020-06-11] MEDS: ASPIRIN 81 MG EC TAB PO SCH (08:35)
[2020-06-11] MEDS: CARVEDILOL 25 MG TABLET PO SCH ×2 (08:36→20:19)
[2020-06-11] MEDS: CLOPIDOGREL 75MG TAB PO SCH (08:37)
[2020-06-11] MEDS: RANOLAZINE 500 MG TAB.SR.12H PO SCH ×2 (08:37→20:19)
[2020-06-11] MEDS: CHOLECALCIFEROL PO SCH (08:41)
[2020-06-11] MEDS: CYANOCOBALAMIN PO SCH (08:41)
[2020-06-11] MEDS: SACUBITRIL PO SCH ×2 (08:41→20:19)
[2020-06-11] MEDS: VALSARTAN PO SCH ×2 (08:41→20:19)
[2020-06-11] MEDS: PYRIDOXINE PO SCH (08:41)
[2020-06-11] MEDS: FOLIC ACID PO SCH (08:41)
[2020-06-11] MEDS: RIBOFLAVIN PO SCH (08:41)
[2020-06-11 09:37] VITALS: BP 116/59
[2020-06-11 12:22] VITALS: BP 124/63
[2020-06-11 13:09] LABS: HEPATITIS B CORE IGM Negative (Negative); HEPATITIS Bs ANTIGEN SCREEN P Negative (Negative)
[2020-06-11 20:15] VITALS: BP 154/77
[2020-06-11 20:18] VITALS: BP 145/79
[2020-06-11] MEDS: ATORVASTATIN 40 MG TABLET PO SCH (20:18)
[2020-06-11] MEDS: EZETIMIBE 10 MG TAB PO SCH (20:18)
[2020-06-11] MEDS: FAMOTIDINE 20MG VIAL IV SCH (20:20)
[2020-06-11 23:57] VITALS: BP 159/82
[2020-06-12] VITALS (14 sets, daily range): BP systolic 106–166; BP diastolic 35–118
[2020-06-12] MEDS: INSULIN R PO SS1/2 SQ SCH ×4 (04:25→20:26)
[2020-06-12 05:13] LABS: BASOPHILS % (AUTO) 0.6 % (0.0-5.0); EOSINOPHILS % (AUTO) 2.8 % (0.0-8.0); HEMATOCRIT 33.6 % (42-54); LYMPHOCYTES % (AUTO) 23.8 % (21.0-51.0); MEAN CORPUSCULAR HEMOGLOBIN 30.6 pg (27.0-33.0); MEAN CORPUSCULAR HGB CONC 31.5 g/dL (32.0-36.0); MEAN CORPUSCULAR VOLUME 97.1 fL (79-99); NEUTROPHILS % (AUTO) 62.6 % (40.0-77.0); PLATELET COUNT (AUTO) 116 K/uL (130-400); RED BLOOD CELL COUNT(AUTO) 3.46 MIL/uL (4.50-6.20); RED CELL DISTRIBUTION WIDTH 14.1 % (11.0-15.5); WHITE BLOOD COUNT (AUTO) 6.4 K/uL (4.8-10.8)
[2020-06-12 05:30] LABS: CREATININE 7.1 mg/dL (0.5-1.5); POTASSIUM 4.4 mmol/L (3.5-5.1)
[2020-06-12] MEDS: CYANOCOBALAMIN PO SCH (09:00)
[2020-06-12] MEDS: RIBOFLAVIN PO SCH (09:00)
[2020-06-12] MEDS: PYRIDOXINE PO SCH (09:00)
[2020-06-12] MEDS: CHOLECALCIFEROL PO SCH (09:00)
[2020-06-12] MEDS: VALSARTAN PO SCH ×2 (09:00→20:12)
[2020-06-12] MEDS: SACUBITRIL PO SCH ×2 (09:00→20:12)
[2020-06-12] MEDS: FOLIC ACID PO SCH (09:00)
[2020-06-12] MEDS: CARVEDILOL 25 MG TABLET PO SCH ×2 (09:10→20:14)
[2020-06-12] MEDS: RANOLAZINE 500 MG TAB.SR.12H PO SCH ×2 (09:10→20:13)
[2020-06-12] MEDS: HYDROCODONE/ACETAMINOPHEN 10/325 MG TAB PO PRN ×3 (09:12→22:37)
[2020-06-12] MEDS ORDERED: VANCOMYCIN 1G/250ML KIT 250 ML IV PRN (09:15)
[2020-06-12] MEDS ORDERED: VANCOMYCIN 1G/250ML KIT 250 ML IV ONE (09:52)
[2020-06-12] MEDS ORDERED: MEPERIDINE-PF 25 MG/ML SYG ONE ×3 (09:52→10:31)
[2020-06-12] MEDS ORDERED: BUPIVACAINE/PF 0.25% 30ML VIAL IJ ONE (09:52)
[2020-06-12] MEDS ORDERED: MIDAZOLAM HCL 1 MG/ML 2ML VIAL ONE ×3 (09:52→10:31)
[2020-06-12] MEDS ORDERED: LIDOCAINE HCL 1% MDV 50ML VIAL ONE (09:52)
[2020-06-12] MEDS ORDERED: IOHEXOL-350 50ML VIAL IV ONE (10:28)
[2020-06-12] MEDS ORDERED: ACETAMINOPHEN WITH CODEINE 1 TAB TAB PO PRN (11:15)
[2020-06-12] MEDS: ASPIRIN 81 MG EC TAB PO SCH (16:55)
[2020-06-12] MEDS: CLOPIDOGREL 75MG TAB PO SCH (16:55)
[2020-06-12] MEDS: ATORVASTATIN 40 MG TABLET PO SCH (20:13)
[2020-06-12] MEDS: FAMOTIDINE 20MG VIAL IV SCH (20:13)
[2020-06-12] MEDS: EZETIMIBE 10 MG TAB PO SCH (20:14)
[2020-06-13 03:43] VITALS: BP 146/77
[2020-06-13] MEDS: HYDROCODONE/ACETAMINOPHEN 10/325 MG TAB PO PRN ×2 (05:02→15:36)
[2020-06-13] MEDS: INSULIN R PO SS1/2 SQ SCH ×3 (05:16→16:17)
[2020-06-13 05:58] LABS: BASOPHILS % (AUTO) 0.2 % (0.0-5.0); EOSINOPHILS % (AUTO) 3.3 % (0.0-8.0); HEMATOCRIT 31.8 % (42-54); LYMPHOCYTES % (AUTO) 13.8 % (21.0-51.0); MEAN CORPUSCULAR HEMOGLOBIN 31.4 pg (27.0-33.0); MEAN CORPUSCULAR HGB CONC 32.7 g/dL (32.0-36.0); MEAN CORPUSCULAR VOLUME 96.1 fL (79-99); MONOCYTES % (AUTO) 8.8 % (3.0-13.0); NEUTROPHILS % (AUTO) 73.6 % (40.0-77.0); PLATELET COUNT (AUTO) 119 K/uL (130-400); RED BLOOD CELL COUNT(AUTO) 3.31 MIL/uL (4.50-6.20); WHITE BLOOD COUNT (AUTO) 6.4 K/uL (4.8-10.8)
[2020-06-13 06:07] LABS: MAGNESIUM 1.8 mg/dL (1.80-2.40)
[2020-06-13 08:35] VITALS: BP 139/79
[2020-06-13] MEDS: FOLIC ACID PO SCH (09:00)
[2020-06-13] MEDS: SACUBITRIL PO SCH (09:00)
[2020-06-13] MEDS: VALSARTAN PO SCH (09:00)
[2020-06-13] MEDS: PYRIDOXINE PO SCH (09:00)
[2020-06-13] MEDS: CHOLECALCIFEROL PO SCH (09:00)
[2020-06-13] MEDS: CYANOCOBALAMIN PO SCH (09:00)
[2020-06-13] MEDS: RIBOFLAVIN PO SCH (09:00)
[2020-06-13 12:00] VITALS: BP 130/73
[2020-06-13] MEDS: ASPIRIN 81 MG EC TAB PO SCH (15:36)
[2020-06-13] MEDS: RANOLAZINE 500 MG TAB.SR.12H PO SCH (15:37)
[2020-06-13 15:38] VITALS: BP 106/59
[2020-06-13] MEDS: CARVEDILOL 25 MG TABLET PO SCH (15:38)
[2020-06-13] MEDS: CLOPIDOGREL 75MG TAB PO SCH (15:39)
== END 2020-06-13 17:35 | disposition home or self-care (01) | DRG 226 ==
LOC: EDH 08:08 → EDHIP 12:30 → 4BH 23:36
PROVIDERS: ADMIT Family Medicine; ATTEND Family Medicine
PROC: 5A1D70Z Performance of Urinary Filtration, Intermittent, Less than 6 Hours Per Day (ICD-10-PCS; principal; 2020-06-08)
PROC: 5A1D70Z Performance of Urinary Filtration, Intermittent, Less than 6 Hours Per Day (ICD-10-PCS; 2020-06-10)
PROC: 0JH608Z Insertion of Defibrillator Generator into Chest Subcutaneous Tissue and Fascia, Open Approach (ICD-10-PCS; 2020-06-12)
PROC: 02HK3KZ Insertion of Defibrillator Lead into Right Ventricle, Percutaneous Approach (ICD-10-PCS; 2020-06-12)
PROC: 5A1D70Z Performance of Urinary Filtration, Intermittent, Less than 6 Hours Per Day (ICD-10-PCS; 2020-06-13)
DX: R55 Syncope and collapse (principal); N18.6 End stage renal disease; I50.22 Chronic systolic (congestive) heart failure; I13.2 Hypertensive heart and chronic kidney disease with heart failure and with stage 5 chronic kidney disease, or end stage renal disease; I25.5 Ischemic cardiomyopathy; E11.51 Type 2 diabetes mellitus with diabetic peripheral angiopathy without gangrene; D63.1 Anemia in chronic kidney disease; I25.10 Atherosclerotic heart disease of native coronary artery without angina pectoris; E78.5 Hyperlipidemia, unspecified; E11.22 Type 2 diabetes mellitus with diabetic chronic kidney disease; Z87.891 Personal history of nicotine dependence; I25.2 Old myocardial infarction; Z79.02 Long term (current) use of antithrombotics/antiplatelets; Z79.4 Long term (current) use of insulin; Z79.82 Long term (current) use of aspirin; Z79.899 Other long term (current) drug therapy; Z99.2 Dependence on renal dialysis; Z95.1 Presence of aortocoronary bypass graft; Z88.0 Allergy status to penicillin; Z88.8 Allergy status to other drugs, medicaments and biological substances
CPT/HCPCS: 33249; 36415; 70450; 71045; 80048; 80053; 80061; 80074; 80305; 81001; 82550; 82948; 83036; 83735; 83874; 84100; 84443; 84484; 85025; 85610; 85730; 90935; 93005; 93306; 93356; 93880; 99156; 99157; C1722; C1895; C9113; G0378; J1815; J2175; J2250; J3370; J3490; Q9967

== ENCOUNTER 2020-07-22 10:13 | Emergency (ER) | payer MEDICARE ==
[~2020-07-22 10:13] MED LIST changes: +LORA2TAB80 PO
[2020-07-22 10:55] LABS: BASOPHILS % (AUTO) 0.5 % (0.0-5.0); HEMATOCRIT 24.9 % (42-54); LYMPHOCYTES % (AUTO) 22.7 % (21.0-51.0); MEAN CORPUSCULAR HEMOGLOBIN 31.3 pg (27.0-33.0); MEAN CORPUSCULAR HGB CONC 31.3 g/dL (32.0-36.0); MONOCYTES % (AUTO) 9.4 % (3.0-13.0); NEUTROPHILS % (AUTO) 65.7 % (40.0-77.0); PLATELET COUNT (AUTO) 76 K/uL (130-400); RED BLOOD CELL COUNT(AUTO) 2.49 MIL/uL (4.50-6.20); RED CELL DISTRIBUTION WIDTH 19.6 % (11.0-15.5); WHITE BLOOD COUNT (AUTO) 4.1 K/uL (4.8-10.8)
[2020-07-22 11:08] LABS: ALBUMIN 2.7 g/dL (3.5-5.0); BILIRUBIN,TOTAL 0.9 mg/dL (0.2-1.0); CREATININE 3.3 mg/dL (0.5-1.5); POTASSIUM 4.1 mmol/L (3.5-5.1); TOTAL PROTEIN, SERUM 6.7 g/dL (6.0-8.3)
== END 2020-07-22 11:59 | disposition home or self-care (01) ==
LOC: EDH 10:13
DX: D61.818 Other pancytopenia (principal); I13.2 Hypertensive heart and chronic kidney disease with heart failure and with stage 5 chronic kidney disease, or end stage renal disease; E11.22 Type 2 diabetes mellitus with diabetic chronic kidney disease; N18.6 End stage renal disease; I50.9 Heart failure, unspecified; I25.10 Atherosclerotic heart disease of native coronary artery without angina pectoris; E78.00 Pure hypercholesterolemia, unspecified; Z95.1 Presence of aortocoronary bypass graft; Z88.0 Allergy status to penicillin; Z88.6 Allergy status to analgesic agent; Z99.2 Dependence on renal dialysis; Z99.81 Dependence on supplemental oxygen
CPT/HCPCS: 36415; 80053; 85025; 86850; 86900; 86901